=== PATIENT | male | born 1955 | race Caucasian/White ===

== ENCOUNTER 2016-08-26 07:41 | Inpatient (IN) | payer OTHER, BC ==
[~2016-08-26] VITALS: Ht 182.9 cm; Wt 106.6 kg
[2016-08-26] VITALS (9 sets, daily range): BP systolic 117–158; BP diastolic 83–99
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
[2016-08-26] MEDS ORDERED: MORPHINE SULFATE 10 MG/ML VIAL. IV PRN (08:00)
[2016-08-26] MEDS ORDERED: ONDANSETRON PF 4 MG/2 ML VIAL. IV PRN ×3 (08:00→14:45)
[2016-08-26] MEDS ORDERED: DIPHTH,PERTUSS(ACELL),TET TOX 0.5 ML DISP.SYRIN. VAX IM ONE (08:00)
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
[2016-08-26] MEDS ORDERED: HYDROMORPHONE 2 MG/ML VIAL. IV ONE ×2 (09:15→10:15)
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
[2016-08-26 09:37] LABS: BASO # 0.1 x10^3/uL (0.0-0.2); BASO % 1 % (0-3); EOS % 0 % (0-3); HEMATOCRIT 43.3 % (39.0-53.0); HEMOGLOBIN 15.1 g/dL (13.0-17.5); LYMPH # 1.2 x10^3/uL (1.0-4.8); LYMPH % 6 % (24-48); MEAN CORPUSCULAR HEMOGLOBIN 32 pg (25-35); MEAN CORPUSCULAR HGB CONC 35 g/dL (31-37); MEAN CORPUSCULAR VOLUME 91 fL (79-100); MONO % 5 % (0-9); NEUT % 88 % (31-73); PLATELET COUNT 278 x10^3/uL (140-400); RED BLOOD COUNT 4.75 x10^6/uL (4.30-5.70); WHITE BLOOD COUNT 19.5 x10^3/uL (4.0-11.0)
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
[2016-08-26 09:48] LABS: CALCIUM 9.4 mg/dL (8.5-10.1); GFR 76.5; POTASSIUM 4.2 mmol/L (3.5-5.1)
[2016-08-26 09:49] LABS: INR 1.1 (0.8-1.1); PROTHROMBIN TIME PATIENT 13.8 SEC (11.7-14.0)
[2016-08-26 09:54] LABS: ALBUMIN/GLOBULIN RATIO 1.5 (1.0-1.7); TOTAL BILIRUBIN 0.6 mg/dL (0.2-1.0); TOTAL PROTEIN 6.7 g/dL (6.4-8.2)
[2016-08-26 12:03] LABS: % EOS 1 % (0-5); PLT ESTIMATE ADEQUATE (ADEQUATE)
[2016-08-26] MEDS: IV NORMAL SALINE 1000ML BAG 1,000 ML IV SCH ×2 (13:18→18:00)
[2016-08-26] MEDS: HYDROMORPHONE 2 MG/ML VIAL. IV PRN ×2 (14:33→22:03)
[2016-08-26] MEDS ORDERED: FENTANYL PF 100 MCG/2 ML VIAL. IV PRN (14:45)
[2016-08-26] MEDS ORDERED: IV RINGERS,LACTATED 1000ML 1,000 ML IV SCH (14:45)
[2016-08-26] MEDS ORDERED: LIDOCAINE 1% 1 ML SYRINGE. ID PRN (14:45)
[2016-08-26] MEDS ORDERED: HYDROMORPHONE 2 MG/ML VIAL. IV PRN (14:45)
[2016-08-26] MEDS ORDERED: PROCHLORPERAZINE 10 MG/2 ML VIAL. IV PRN (14:45)
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
[2016-08-26] MEDS ORDERED: LIDOCAINE 2% 100 MG/5 ML DISP.SYRIN. ONE (15:35)
[2016-08-26] MEDS ORDERED: DEXAMETHASONE SOD PHOS 20 MG/5 ML VIAL. ONE (15:35)
[2016-08-26] MEDS ORDERED: PROPOFOL 20 ML IV ONE (15:35)
[2016-08-26] MEDS ORDERED: ONDANSETRON PF 4 MG/2 ML VIAL. ONE (15:35)
--- NOTE | 2016-08-26 15:46 | EKG ---
[facility] [address] [place] [address] Test Date: 2016-08-26 Test Time: 09:24:40 Pat Name: YOLANDA CULP Department: Room: 434 1 Gender: M Straw Boss: : 1955 Requested By: STEPHANIE PATRICIA Order Number: [id number] Reading MD: Court Lerma Measurements Intervals [place] Rate: 68 P: 28 SD: 162 QRS: -12 QRSD: 98 T: 40 QT: 404 QTc: 434 Interpretive Statements SINUS RHYTHM LEFTWARD AXIS NO SPECIFIC ECG ABNORMALITIES RI6.01 No previous ECG available for comparison Electronically Signed On 08-28-2016 0:32:32 [address] Lerma
[2016-08-26] MEDS ORDERED: CLINDAMYCIN 600MG PREMIX 50 ML IV ONE (16:10)
[2016-08-26] MEDS ORDERED: EPHEDRINE PF IN SALINE 50 MG/5 ML DISP.SYRIN. IV ONE (16:23)
[2016-08-26] MEDS ORDERED: SEVOFLURANE 61 TO 120 MINUTES. IH ONE (16:48)
[2016-08-26] MEDS ORDERED: KETOROLAC 60 MG/2 ML SYRINGE FOR OR. ONE (16:48)
[2016-08-26] MEDS ORDERED: KETAMINE HCL 500 MG/10 ML VIAL. ONE (16:56)
[2016-08-26] MEDS ORDERED: BUPIVACAINE-EPI 0.5%-1:200000 50 ML VIAL. ONE (17:17)
[2016-08-26] MEDS: FENTANYL PF 100 MCG/2 ML VIAL. IV PRN ×2 (18:23→18:34)
[2016-08-26] MEDS: MORPHINE SULFATE 2 MG/ML DISP.SYRIN. IV PRN ×2 (18:39→18:58)
[2016-08-27] VITALS (7 sets, daily range): BP systolic 104–130; BP diastolic 75–86
[2016-08-27] MEDS: HYDROMORPHONE 2 MG/ML VIAL. IV PRN ×3 (00:14→18:45)
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
--- NOTE | 2016-08-27 02:05 | ACF ---
Admission Forms Criteria MUSCULOSKELETAL DISEASE GRG Clinical Indications for Admission to Inpatient Care (Place 'X' for any and all applicable criteria): Hospital admission is needed for appropriate care of the patient because of ANY ONE of the following: [ ]I. Fracture, dislocation, or other musculoskeletal injury requiring inpatient care(medical) as indicated by ANY ONE of the following(4)(5)(6)(7) [ ]a) Vertebral fracture requiring observation for instability or neurologic compromise (8) [ ]b) Compartment syndrome (proven or cannot be ruled out during observation level of care) (9) [ ]c) Limb-threatening injury [ ]d) Major injury requiring inpatient stabilization such as traction initiation or external fixation before internal fixation or closure of complex or open fracture [ ]e) Major injury requiring inpatient treatment after emergency or observation level care (as appropriate) [ ]f) Severe pain requiring acute inpatient management [ ]II. Newly diagnosed or suspected bone, joint, or orthopedic device infection (e.g., osteomyelitis, septic arthritis) needing ANY ONE of the following(1)(2)(3) [ ]a) IV antibiotics that cannot be initiated in other than inpatient setting (e.g., patient too unstable or home infusion not available) [ ]b) Device removal or replacement [ ]c) Bone or soft tissue debridement [ ]d) Joint drainage (drain placement or repetitive aspirations) [ ]III. Severe rheumatologic disease (e.g., systemic lupus erythematosus, rheumatoid arthritis) with complications or comorbidities (Also use Optimal Recovery Care Criteria or General Recovery Criteria as appropriate on the basis of predominant condition), including ANY ONE of the following(10 )(11)(12)(13) [ ]a) Severe infection (e.g., RECYCLER infection, sepsis) (14) [ ]b) Respiratory complications, including ANY ONE of the following: [ ]i) Pleural effusion with respiratory compromise [ ]ii) Pulmonary hypertension with congestive failure [ ]iii) Respiratory failure [ ]iv) Pulmonary hemorrhage (15) [ ]c) Hematologic disease, including ANY ONE of the following: [ ]i) Coagulopathy with bleeding [ ]ii) Thrombosis with hypercoagulable state [ ]iii) Thrombotic thrombocytopenic purpura [ ]d) Cerebritis with seizures, psychosis, or other severe abnormalities [ ]e) Vertebral destruction with monitoring needed for cervical myelopathy& possible respiratory compromise [ ]f) Exacerbation that requires inpatient treatment (e.g., intravenous immunosuppression) (16) [ ]g) Acute renal failure [ ]IV. Severe vasculitis with complications or comorbidities (Also use Optimal Recovery Care Criteria or General Recovery Criteria as appropriate on the basis of predominant condition), including ANY ONE of the following(11)(12)(17)(18)(19)(20) [ ]a) RECYCLER vasculitis with seizures, psychosis, or other severe abnormalities (22) [ ]b) Renal failure (16) [ ]c) Pulmonary hemorrhage (15) [ ]d) Cerebral infarction [ ]e) Gastrointestinal ischemia [ ]f) Gangrene or threatened amputation [ ]g) Exacerbation that requires inpatient treatment (e.g., intravenous immunosuppression) (19)(21) [ ]V. Severe myopathy as indicated by ANY ONE of the following (28)(29) [ ]a) New onset of airway compromise or inability to swallow [ ]b) Respiratory deterioration with observation needed for impending respiratory failure [ ]c) Exacerbation that requires inpatient treatment (e.g., intravenous immunosuppression) [ ]. Severe gout (crystal arthropathy) as indicated by ANY ONE of the following (23)(24) [ ]a) Severe pain requiring acute inpatient management [ ]b) Exacerbation that requires inpatient treatment (e.g., intravenous treatment) [ ]VII.Rhabdomyolysis and ANY ONE of the following (25)(26)(27) [ ]a) Acute renal failure [ ]b) Need for intravenous hydration after emergency or observation level care (as appropriate) [ ]c) Inability to maintain oral hydration [ ]d) Change in mental status [ ]e) Electrolyte abnormality that remains after emergency or observation level care (as appropriate) [ ]VIII Post amputation complication, as indicated by ANY ONE of the following [ ]a) Infection [ ]b) Dehiscence [ ]c) Myodesis failure [X]IX. Severe pain requiring acute inpatient management as indicated by ALL of the following (30)(31)(32) [X]a) Continuous or frequent (e.g., every 2 to 4 hrs) parenteral analgesics required [A] [X]b) Rapid improvement expected from treatment or acute intervention ( e.g., surgery, anesthesia procedure[B] [ ]X. Musculoskeletal Disease and ALL of the following: [ ]a) Symptom or finding for which emergency and observation care have failed or are not considered appropriate (Use General Criteria: Observation Care as appropriate) [ ]b) Presence of ANY ONE of the following [ ]i) A General Admission Criteria [ ]ii) A Pediatric General Admission Criteria The original [facility] content created by [facility] has been revised. The portions of the content which have been revised are identified through the use of italic text or in bold, and [facility] has neither reviewed nor approved the modified material. All other unmodified content is copyright [facility]. Please see references footnoted in the original [facility] edition 2016 Admission Criteria Met?: Yes MICHAEL SHAW Aug 27, 2016 02:05
[2016-08-27] MEDS: IV NORMAL SALINE 1000ML BAG 1,000 ML IV SCH (02:16)
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
[2016-08-27 05:11] LABS: BASO % 0 % (0-3); EOS % 0 % (0-3); HEMATOCRIT 38.5 % (39.0-53.0); HEMOGLOBIN 12.9 g/dL (13.0-17.5); LYMPH # 0.8 x10^3/uL (1.0-4.8); LYMPH % 6 % (24-48); MEAN CORPUSCULAR HEMOGLOBIN 32 pg (25-35); MEAN CORPUSCULAR HGB CONC 34 g/dL (31-37); MEAN CORPUSCULAR VOLUME 95 fL (79-100); MONO % 5 % (0-9); NEUT % 90 % (31-73); PLATELET COUNT 246 x10^3/uL (140-400); RED BLOOD COUNT 4.07 x10^6/uL (4.30-5.70); RED CELL DISTRIBUTION WIDTH 12.8 % (11.5-14.5); WHITE BLOOD COUNT 14.8 x10^3/uL (4.0-11.0)
[2016-08-27 05:58] LABS: CALCIUM 8.6 mg/dL (8.5-10.1); CREATININE 1.3 mg/dL (0.7-1.3); GFR 56.5; POTASSIUM 4.5 mmol/L (3.5-5.1)
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
[2016-08-27] MEDS ORDERED: PANTOPRAZOLE 40 MG TABLET. PO SCH (09:00)
[2016-08-27] MEDS ORDERED: IV DEXTROSE 5 %-0.45 % NACL 500 ML IV ONE (09:00)
[2016-08-27] MEDS: HYDROCODONE/APAP 5/325MG TABLET. PO PRN ×4 (09:24→22:56)
[2016-08-27] MEDS: IV 1/2 NORMAL SALINE 1,000 ML IV SCH (09:25)
[2016-08-27] MEDS: ENOXAPARIN 40 MG/0.4 ML DISP.SYRIN. SQ SCH (09:25)
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
[2016-08-27] MEDS: CALCIUM CARBONATE 500 MG TAB.CHEW PO PRN ×2 (18:16→22:53)
[2016-08-27] MEDS: PANTOPRAZOLE 40 MG TABLET. PO SCH (18:16)
[2016-08-28] MEDS: IV 1/2 NORMAL SALINE 1,000 ML IV SCH (01:39)
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
[2016-08-28 03:36] VITALS: BP 116/78
[2016-08-28] MEDS: HYDROCODONE/APAP 5/325MG TABLET. PO PRN ×6 (06:23→23:28)
[2016-08-28] MEDS: PANTOPRAZOLE 40 MG TABLET. PO SCH ×2 (06:23→16:12)
[2016-08-28 07:00] VITALS: BP 141/82
[2016-08-28 08:09] LABS: BASO # 0.1 x10^3/uL (0.0-0.2); BASO % 1 % (0-3); EOS % 1 % (0-3); HEMATOCRIT 33.6 % (39.0-53.0); HEMOGLOBIN 11.1 g/dL (13.0-17.5); LYMPH # 1.7 x10^3/uL (1.0-4.8); LYMPH % 16 % (24-48); MEAN CORPUSCULAR HEMOGLOBIN 32 pg (25-35); MEAN CORPUSCULAR HGB CONC 33 g/dL (31-37); MEAN CORPUSCULAR VOLUME 96 fL (79-100); MONO % 9 % (0-9); NEUT % 75 % (31-73); PLATELET COUNT 199 x10^3/uL (140-400); WHITE BLOOD COUNT 11.1 x10^3/uL (4.0-11.0)
[2016-08-28 08:42] LABS: CREATININE 0.9 mg/dL (0.7-1.3); GFR 86.4; POTASSIUM 4.4 mmol/L (3.5-5.1)
[2016-08-28] MEDS: ENOXAPARIN 40 MG/0.4 ML DISP.SYRIN. SQ SCH (08:53)
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
--- NOTE | 2016-08-28 09:11 | DISCH ---
DISCHARGE INSTRUCTIONS Condition on Discharge Condition on Discharge: Stable Activity After Discharge Activity Instructions for Disc: Other, see below Weight Bearing Status after Di: Non weight bearing Diet after Discharge Diet after Discharge: Regular Contacting the DRJonatan after DC Call your doctor for: Concerns you may have Follow-Up Follow up with: Dr Fernandez in 7-10 days ANAMARIA SMITH MD Aug 28, 2016 09:11
[2016-08-28] MEDS ORDERED: HYDR-2666 PO (09:19)
[2016-08-28] MEDS: HYDROMORPHONE 2 MG/ML VIAL. IV PRN ×2 (10:27→16:13)
[2016-08-28 11:00] VITALS: BP 121/69
[2016-08-28] MEDS ORDERED: CONTRAST GIVEN MC PRN (11:00)
[2016-08-28] MEDS ORDERED: IOHEXOL 300 MG/ML 75 ML VIAL IV ONE (11:00)
[2016-08-28] MEDS ORDERED: ENOXAPARIN ** NOTE DOSE ** SYRINGE SQ SCH (11:31)
[2016-08-28] MEDS: CALCIUM CARBONATE 500 MG TAB.CHEW PO PRN ×3 (12:07→23:30)
--- NOTE | 2016-08-28 13:05 | RAD ---
Indication acute shortness of breath. Contrast imaging through the chest was performed. Examination was tailored for the detection of pulmonary embolus. There is not optimal opacification of the pulmonary arteries but opacification is adequate. (The study is positive for pulmonary embolus). MIP images were generated and reviewed. No prior CT imaging is available of the chest. There are no large central pulmonary emboli. Emboli are seen however in segmental and subsegmental branches to the left lower lobe. No definite emboli are seen on the right. There is mild mediastinal adenopathy. Definite pathologic mediastinal adenopathy is not seen. Occasional calcified mediastinal lymph nodes are additionally noted. There is a nonsolid opacity in the right upper lobe suggesting pneumonia. Minimal nonsolid parenchymal opacity also suggesting pneumonia is seen in the superior segment of the right lower lobe. There are additional areas of volume loss in both lungs, the lower lobes, suggesting atelectasis or scar. A patchy infiltrate, similar to that the right upper lobe is seen in the dependent portion of the left upper lobe and the left lower lobe. There is a small hiatus hernia. Imaging through the upper abdomen is unremarkable. Preliminary critical critical results were communicated to Ally, the nurse on the floor caring for the patient at the time of dictation. IMPRESSION: Positive study for pulmonary emboli. There are no large central pulmonary emboli although there are segmental and subsegmental emboli on the left. Patchy nonsolid pulmonary infiltrates in both lungs suggesting superimposed pneumonia. Additional areas of volume loss, probably representing atelectasis or scar, in the lower lobes PQRS Compliance Statement: One or more of the following individualized dose reduction techniques were utilized for this examination: 1. Automated exposure control 2. Adjustment of the mA and/or kV according to patient size 3. Use of iterative reconstruction technique
[2016-08-28] MEDS ORDERED: ENOXAPARIN ** NOTE DOSE ** SYRINGE SQ ONE (13:30)
[2016-08-28 15:00] VITALS: BP 124/77
[2016-08-28 19:45] VITALS: BP 135/92
[2016-08-28] MEDS: ENOXAPARIN ** NOTE DOSE ** SYRINGE SQ SCH (19:54)
[2016-08-28 23:37] VITALS: BP 151/96
[2016-08-29 03:30] VITALS: BP 154/101
[2016-08-29] MEDS: HYDROCODONE/APAP 5/325MG TABLET. PO PRN ×7 (03:49→23:31)
[2016-08-29] MEDS: PANTOPRAZOLE 40 MG TABLET. PO SCH ×2 (06:19→17:07)
[2016-08-29 07:45] LABS: CALCIUM 8.9 mg/dL (8.5-10.1); CREATININE 0.9 mg/dL (0.7-1.3); GFR 86.4
[2016-08-29 07:51] VITALS: BP 153/95
[2016-08-29 07:56] LABS: BASO # 0.1 x10^3/uL (0.0-0.2); BASO % 1 % (0-3); EOS % 1 % (0-3); HEMATOCRIT 32.3 % (39.0-53.0); HEMOGLOBIN 10.7 g/dL (13.0-17.5); LYMPH % 17 % (24-48); MEAN CORPUSCULAR HEMOGLOBIN 32 pg (25-35); MEAN CORPUSCULAR HGB CONC 33 g/dL (31-37); MEAN CORPUSCULAR VOLUME 96 fL (79-100); MONO % 8 % (0-9); NEUT % 73 % (31-73); PLATELET COUNT 202 x10^3/uL (140-400); RED BLOOD COUNT 3.38 x10^6/uL (4.30-5.70); RED CELL DISTRIBUTION WIDTH 12.5 % (11.5-14.5); WHITE BLOOD COUNT 12.2 x10^3/uL (4.0-11.0)
[2016-08-29] MEDS: CALCIUM CARBONATE 500 MG TAB.CHEW PO PRN (07:58)
[2016-08-29] MEDS: ENOXAPARIN ** NOTE DOSE ** SYRINGE SQ SCH ×2 (08:00→20:37)
[2016-08-29] MEDS: HYDROMORPHONE 2 MG/ML VIAL. IV PRN ×2 (10:42→17:13)
[2016-08-29 11:04] VITALS: BP 164/91
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
[2016-08-29] MEDS: ANTI-COAG MONITOR BY PHARMACY. MC PRN (14:17)
--- NOTE | 2016-08-29 15:03 | PDOC ---
PROGRESS NOTES Subjective Subjective Problems overnight:doing well, wants to go home Objective Vital Signs Vital Signs Date Time Temp Pulse Resp B/P Pulse Ox O2 Delivery O2 Flow Rate FiO2 08/29/16 13:52 Nasal Cannula 3.0 08/29/16 11:04 97.7 91 20 164/91 93 97.7 Physical Exam knee incision intact, neuro intact, good early motion Labs Laboratory Tests Test 08/28/16 07:15 08/29/16 06:45 White Blood Count 11.1x10^3/uL (4.0-11.0) 12.2x10^3/uL (4.0-11.0) Red Blood Count 3.50x10^6/uL (4.30-5.70) 3.38x10^6/uL (4.30-5.70) Hemoglobin 11.1g/dL (13.0-17.5) 10.7g/dL (13.0-17.5) Hematocrit 33.6% (39.0-53.0) 32.3% (39.0-53.0) Mean Corpuscular Volume 96fL (79-100) 96fL (79-100) Mean Corpuscular Hemoglobin 32pg (25-35) 32pg (25-35) Mean Corpuscular Hemoglobin Concent 33g/dL (31-37) 33g/dL (31-37) Red Cell Distribution Width 13.0% (11.5-14.5) 12.5% (11.5-14.5) Platelet Count 199x10^3/uL (140-400) 202x10^3/uL (140-400) Neutrophils (%) (Auto) 75% (31-73) 73% (31-73) Lymphocytes (%) (Auto) 16% (24-48) 17% (24-48) Monocytes (%) (Auto) 9% (0-9) 8% (0-9) Eosinophils (%) (Auto) 1% (0-3) 1% (0-3) Basophils (%) (Auto) 1% (0-3) 1% (0-3) Neutrophils # (Auto) 8.3x10^3uL (1.8-7.7) 8.9x10^3uL (1.8-7.7) Lymphocytes # (Auto) 1.7x10^3/uL (1.0-4.8) 2.0x10^3/uL (1.0-4.8) Monocytes # (Auto) 1.0x10^3/uL (0.0-1.1) 1.0x10^3/uL (0.0-1.1) Eosinophils # (Auto) 0.1x10^3/uL (0.0-0.7) 0.2x10^3/uL (0.0-0.7) Basophils # (Auto) 0.1x10^3/uL (0.0-0.2) 0.1x10^3/uL (0.0-0.2) Sodium Level 140mmol/L (136-145) 140mmol/L (136-145) Potassium Level 4.4mmol/L (3.5-5.1) 4.0mmol/L (3.5-5.1) Chloride Level 104mmol/L (98-107) 104mmol/L (98-107) Carbon Dioxide Level 27mmol/L (21-32) 28mmol/L (21-32) Anion Gap 9 (6-14) 8 (6-14) Blood Urea Nitrogen 18mg/dL (8-26) 14mg/dL (8-26) Creatinine 0.9mg/dL (0.7-1.3) 0.9mg/dL (0.7-1.3) Estimated GFR (Cockcroft-Gault) 86.4 86.4 Glucose Level 123mg/dL (70-99) 110mg/dL (70-99) Calcium Level 9.0mg/dL (8.5-10.1) 8.9mg/dL (8.5-10.1) Laboratory Tests Test 08/29/16 06:45 White Blood Count 12.2x10^3/uL (4.0-11.0) Red Blood Count 3.38x10^6/uL (4.30-5.70) Hemoglobin 10.7g/dL (13.0-17.5) Hematocrit 32.3% (39.0-53.0) Mean Corpuscular Volume 96fL (79-100) Mean Corpuscular Hemoglobin 32pg (25-35) Mean Corpuscular Hemoglobin Concent 33g/dL (31-37) Red Cell Distribution Width 12.5% (11.5-14.5) Platelet Count 202x10^3/uL (140-400) Neutrophils (%) (Auto) 73% (31-73) Lymphocytes (%) (Auto) 17% (24-48) Monocytes (%) (Auto) 8% (0-9) Eosinophils (%) (Auto) 1% (0-3) Basophils (%) (Auto) 1% (0-3) Neutrophils # (Auto) 8.9x10^3uL (1.8-7.7) Lymphocytes # (Auto) 2.0x10^3/uL (1.0-4.8) Monocytes # (Auto) 1.0x10^3/uL (0.0-1.1) Eosinophils # (Auto) 0.2x10^3/uL (0.0-0.7) Basophils # (Auto) 0.1x10^3/uL (0.0-0.2) Sodium Level 140mmol/L (136-145) Potassium Level 4.0mmol/L (3.5-5.1) Chloride Level 104mmol/L (98-107) Carbon Dioxide Level 28mmol/L (21-32) Anion Gap 8 (6-14) Blood Urea Nitrogen 14mg/dL (8-26) Creatinine 0.9mg/dL (0.7-1.3) Estimated GFR (Cockcroft-Gault) 86.4 Glucose Level 110mg/dL (70-99) Calcium Level 8.9mg/dL (8.5-10.1) Assessment Assessment POD# [], S/P [ORIF tibial plateau fx] Problems: Plan Plan of Care Non wt bearing right leg Knee motion OK treating for PE despite prophylaxis MENG RUBI MD Aug 29, 2016 15:03
[2016-08-29 15:51] VITALS: BP 132/81
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
[2016-08-29 19:10] VITALS: BP 144/92
[2016-08-29 23:17] VITALS: BP 124/92
[2016-08-30] MEDS: HYDROMORPHONE 2 MG/ML VIAL. IV PRN ×3 (01:37→20:47)
[2016-08-30 03:07] VITALS: BP 129/85
[2016-08-30 05:28] LABS: BASO # 0.1 x10^3/uL (0.0-0.2); BASO % 1 % (0-3); EOS % 2 % (0-3); HEMATOCRIT 29.8 % (39.0-53.0); HEMOGLOBIN 10.3 g/dL (13.0-17.5); LYMPH % 15 % (24-48); MEAN CORPUSCULAR HEMOGLOBIN 33 pg (25-35); MEAN CORPUSCULAR HGB CONC 34 g/dL (31-37); MEAN CORPUSCULAR VOLUME 94 fL (79-100); MONO % 10 % (0-9); NEUT % 72 % (31-73); PLATELET COUNT 228 x10^3/uL (140-400); RED BLOOD COUNT 3.16 x10^6/uL (4.30-5.70); RED CELL DISTRIBUTION WIDTH 12.7 % (11.5-14.5); WHITE BLOOD COUNT 13.6 x10^3/uL (4.0-11.0)
[2016-08-30 05:39] LABS: CALCIUM 8.5 mg/dL (8.5-10.1); CREATININE 0.8 mg/dL (0.7-1.3); GFR 98.9; POTASSIUM 4.4 mmol/L (3.5-5.1)
[2016-08-30] MEDS: HYDROCODONE/APAP 5/325MG TABLET. PO PRN ×5 (06:03→22:18)
[2016-08-30 07:00] VITALS: BP 130/92
[2016-08-30] MEDS: DOCUSATE SODIUM 100 MG CAPSULE PO PRN (09:49)
[2016-08-30] MEDS: ENOXAPARIN ** NOTE DOSE ** SYRINGE SQ SCH ×2 (09:49→20:47)
[2016-08-30] MEDS: PANTOPRAZOLE 40 MG TABLET. PO SCH ×2 (09:49→16:47)
[2016-08-30 11:00] VITALS: BP 125/84
[2016-08-30] MEDS: ANTI-COAG MONITOR BY PHARMACY. MC PRN (14:39)
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
[2016-08-30 15:00] VITALS: BP 128/80
[2016-08-30 19:05] VITALS: BP 142/101
[2016-08-30 23:18] VITALS: BP 137/76
[2016-08-31] MEDS: HYDROCODONE/APAP 5/325MG TABLET. PO PRN ×4 (01:05→12:39)
[2016-08-31 03:02] VITALS: BP 125/97
[2016-08-31 05:43] LABS: BASO # 0.1 x10^3/uL (0.0-0.2); BASO % 1 % (0-3); EOS % 3 % (0-3); HEMATOCRIT 31.5 % (39.0-53.0); HEMOGLOBIN 10.9 g/dL (13.0-17.5); LYMPH # 1.9 x10^3/uL (1.0-4.8); LYMPH % 14 % (24-48); MEAN CORPUSCULAR HEMOGLOBIN 32 pg (25-35); MEAN CORPUSCULAR HGB CONC 35 g/dL (31-37); MEAN CORPUSCULAR VOLUME 93 fL (79-100); MONO % 8 % (0-9); NEUT % 74 % (31-73); PLATELET COUNT 280 x10^3/uL (140-400); RED CELL DISTRIBUTION WIDTH 12.6 % (11.5-14.5); WHITE BLOOD COUNT 13.5 x10^3/uL (4.0-11.0)
[2016-08-31 06:37] LABS: CALCIUM 8.9 mg/dL (8.5-10.1); CREATININE 0.9 mg/dL (0.7-1.3); GFR 86.4; POTASSIUM 4.4 mmol/L (3.5-5.1)
[2016-08-31 07:00] VITALS: BP 133/90
[2016-08-31] MEDS: DOCUSATE SODIUM 100 MG CAPSULE PO PRN (08:53)
[2016-08-31] MEDS: PANTOPRAZOLE 40 MG TABLET. PO SCH (08:53)
[2016-08-31] MEDS: ENOXAPARIN ** NOTE DOSE ** SYRINGE SQ SCH (08:56)
[2016-08-31] MEDS ORDERED: OXYCODONE/APAP 10/325 TABLET. PO PRN (10:15)
[2016-08-31] MEDS ORDERED: OXYCODONE/APAP 5/325 TABLET. PO PRN (10:15)
[2016-08-31 11:00] VITALS: BP 143/94
[2016-08-31] MEDS ORDERED: APIX5TAB PO (13:24)
[2016-08-31] MEDS ORDERED: AMOX1TAB61 PO (13:24)
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
[2016-08-31 15:00] VITALS: BP 143/94
[2016-08-31] MEDS ORDERED: TOBRAMYCIN PER PHARMACY MC PRN (17:45)
[2016-08-31] MEDS ORDERED: VANCOMYCIN PER PHARMACY MC PRN (17:45)
[2016-08-31] MEDS ORDERED: APIXABAN 5 MG TABLET. PO SCH (21:00)
[2016-08-31] MEDS ORDERED: AMOXICILLIN/K CLAV 875/125MG TABLET. PO SCH (21:00)
[2016-08-31] MEDS ORDERED: PIPERACILLIN/TAZOBACTAM 2.25 GM in IV NORMAL SALINE 50ML 50 ML IV SCH (22:00)
== END 2016-08-31 16:10 | disposition home or self-care (01) | DRG 492 ==
LOC: ER 07:41 → 4 NORTH 09:16
PROVIDERS: ADMIT Internal Medicine; ATTEND Internal Medicine
PROC: 0QSG04Z Reposition Right Tibia with Internal Fixation Device, Open Approach (ICD-10-PCS; principal; 2016-08-26 16:00)
DX: S82.141A Displaced bicondylar fracture of right tibia, initial encounter for closed fracture (principal); J18.9 Pneumonia, unspecified organism; N17.0 Acute kidney failure with tubular necrosis; I26.99 Other pulmonary embolism without acute cor pulmonale; R09.02 Hypoxemia; S00.83XA Contusion of other part of head, initial encounter; S00.93XA Contusion of unspecified part of head, initial encounter; D72.829 Elevated white blood cell count, unspecified; D50.0 Iron deficiency anemia secondary to blood loss (chronic); S60.512A Abrasion of left hand, initial encounter; Y93.89 Activity, other specified; Y92.89 Other specified places as the place of occurrence of the external cause; Y99.8 Other external cause status; Z88.1 Allergy status to other antibiotic agents; V43.52XA Car driver injured in collision with other type car in traffic accident, initial encounter; Z82.49 Family history of ischemic heart disease and other diseases of the circulatory system; Z88.0 Allergy status to penicillin
CPT/HCPCS: 29505; 36415; 70450; 71010; 71275; 72125; 73130; 73562; 73590; 76000; 80048; 80053; 83880; 85007; 85027; 85610; 90471; 90715; 93005; 96374; 96375; 96376; A4215; J1100; J1170; J1650; J1885; J1956; J2270; J2405; J2704; J3010; J3490; J7030; Q9967; 97110; 97116; 97530; 97535; 99285-25

== ENCOUNTER → 2016-10-02 | Outpatient (CLI) | payer OTHER, BC ==
[~2016-10-02] MED LIST: AMOX1TAB61 PO; APIX5TAB PO; HYDR-2666 PO; IOHEXOL 300 MG/ML 75 ML VIAL IV ONE
--- NOTE | 2016-10-02 12:35 | RAD ---
EXAM: CT ANGIOGRAPHY OF THE CHEST WITH AND WITHOUT INTRAVENOUS CONTRAST. HISTORY: Shortness of breath, pulmonary embolism. TECHNIQUE: Computed tomographic angiography of the chest was performed before and after the intravenous administration of 60 mL Omnipaque 300. 3-D maximum intensity projections were also performed. COMPARISON: 08/28/2016. FINDINGS: Images of the upper abdomen reveal calcified granulomas in the spleen. A moderate hiatal hernia contains mostly fat. Bone windows reveal no suspicious lesions. There is some respiratory motion artifact in the bases. This limits evaluation for small peripheral emboli, but none are seen. There is no aortic dissection or aneurysm. Calcified mediastinal lymph nodes are likely secondary to old granulomatous disease. There are no pathologic appearing lymph nodes There is no pleural or pericardial effusion. The heart is not enlarged. There are atherosclerotic calcifications of the coronary arteries. There is mild dependent atelectasis. There are no acute infiltrates. There is a calcified granuloma in the left lower lobe. IMPRESSION: 1. Previously noted pulmonary emboli are no longer seen. 2. Mild dependent atelectasis. No acute infiltrates. 3. Moderate hiatal hernia containing mostly fat. *One or more of the following individualized dose reduction techniques were utilized for this examination: 1. Automated exposure control. 2. Adjustment of the mA and/or kV according to patient size. 3. Use of iterative reconstruction technique.
== END | disposition home or self-care (01) ==
LOC: CT 14:26
PROVIDERS: ATTEND Internal Medicine Critical Care Medicine
DX: J98.11 Atelectasis (principal); K44.9 Diaphragmatic hernia without obstruction or gangrene
CPT/HCPCS: 71275; Q9967

== ENCOUNTER → 2017-01-06 | Outpatient (CLI) | payer BC ==
[~2017-01-06] MED LIST changes: -IOHEXOL 300 MG/ML 75 ML VIAL IV ONE
--- NOTE | 2017-01-06 11:52 | RAD ---
Indication leg swelling. History of pulmonary embolus. Grayscale color Doppler and spectral imaging was performed. Examination was targeted to the veins of the lower extremities. Bilaterally the common femoral, femoral and popliteal vessels demonstrate normal flow compressibility and augmentation. No thrombus is seen. The visualized calf vessels, bilaterally, appeared unremarkable. IMPRESSION: Negative bilateral lower extremity venous analysis for DVT
== END | disposition home or self-care (01) ==
LOC: US 10:27
PROVIDERS: ATTEND Internal Medicine Critical Care Medicine
DX: I82.403 Acute embolism and thrombosis of unspecified deep veins of lower extremity, bilateral (principal); M79.89 Other specified soft tissue disorders
CPT/HCPCS: 93970

== ENCOUNTER → 2017-06-28 | Outpatient (CLI) | payer BC ==
[~2017-06-28] MED LIST changes: -HYDR-2666 PO; +HYDR-2758 PO; +IOHEXOL 300 MG/ML 100ML VIAL. IV ONE
--- NOTE | 2017-06-28 14:12 | RAD ---
Indication: Dyspnea and leg swelling. Axial imaging through the chest was performed after the administration of intravenous contrast and utilizing the CT angiography protocol. Multiplanar, 3-D and MIP reformations were also performed. Evaluation of the pulmonary arterial system is without evidence of thromboembolism. No filling defects within the central, lobar or segmental pulmonary arteries are identified. The thoracic aorta is normal in caliber. No axillary lymphadenopathy is seen. There are calcified right paratracheal and some subcarinal lymph nodes consistent with prior granulomatous exposure. No pulmonary infiltrates, nodules or masses are seen. Impression: No evidence of pulmonary embolism. PQRS Compliance Statement: One or more of the following individualized dose reduction techniques were utilized for this examination: 1. Automated exposure control 2. Adjustment of the mA and/or kV according to patient size 3. Use of iterative reconstruction technique
--- NOTE | 2017-06-28 14:29 | RAD ---
Indication: Right lower extremity pain and swelling. Grayscale, color-flow and duplex Doppler evaluation of the right lower extremity deep venous system was performed. FINDINGS: There is no evidence of a right lower extremity DVT. The right lower extremity venous system demonstrates normal compressibility with normal response to augmentation and Valsalva. No soft tissue fluid collections are identified. IMPRESSION: No evidence of right lower extremity DVT.
== END | disposition home or self-care (01) ==
LOC: CT 13:15
PROVIDERS: ATTEND Internal Medicine Critical Care Medicine
DX: M79.604 Pain in right leg (principal); M79.89 Other specified soft tissue disorders; R60.0 Localized edema; R06.00 Dyspnea, unspecified
CPT/HCPCS: 71275; 93971; Q9967